=== PATIENT | female | born 1990 | race Caucasian/White ===

== ENCOUNTER 2024-05-10 12:36 | Emergency (ER) | payer OTHER, SELFPAY ==
[2024-05-10 12:45] VITALS: BP 140/106
--- NOTE | 2024-05-10 13:42 | ED.GENMED ---
History of Present Illness
General
Chief Complaint: Change in Mental Status
Source: patient and ambulance crew
Exam Limitations: altered mental status
Time Seen by Provider: 05/10/24 13:18
Nursing documentation reviewed up to this point in time: agreed with
History of Present Illness
History of Present Illness:
34-year-old female mental illness seizure disorder presents for evaluation of bizarre behavior family concerned she is not taking her meds apparently here patient appears to be responding internal stimuli, though she is redirectable, cooperative,
Past History
Past History
ED Past Medical History: Seizures and Psychiatric
Social History
Tobacco: Non-smoker
Alcohol: None
Drug: None
Living: with family
Employment: Not employed
Review of Systems
Review of Systems
Unable to obtain full review of systems at this time due to: other (Mentally ill)
Other source history: ambulance crew
All Other Systems: Not applicable
Constitutional: Reports fever
Phy Exam
Physical Exam
Physical Exam:
Physical Exam
General: 34 female, speech is slightly pressured and bizarre
Neck: No jaundice no photophobia
Heart: Regular
Lungs: no acute respiratory distress.
Neuro: alert and oriented. no focal neurological deficits
Skin: no rash
Psychiatric: Speech is pressured bizarre affect cooperative
Extremities: no edema.
Course
Orders/Labs/Results
Orders:
Orders
05/10/24 13:34
Acetaminophen Urgent
Alcohol Urgent
Complete Blood Count/With Diff Urgent
Comprehensive Metabolic Panel Urgent
Depakane Urgent
HCG, Serum Qualitative Screen Urgent
Salicylate Urgent
Urine Drug Abuse Screen Urgent
05/10/24 13:35
Crisis Consult Urgent
Reason for Consult: bizzaire behavior
Test Result ONCE
Vital Signs
Initial and Last Documented VS:
Initial Vital Signs
Temp Pulse Resp BP Pulse Ox
99 F 87 16 140/106 97
05/10/24 12:45 05/10/24 12:45 05/10/24 12:45 05/10/24 12:45 05/10/24 12:45
Last Documented Vital Signs
Temp Pulse Resp BP Pulse Ox
99 F 87 16 140/106 97
05/10/24 12:45 05/10/24 12:45 05/10/24 12:45 05/10/24 12:45 05/10/24 12:45
MDM/Problems Addressed
Differential Diagnosis Includes:
Acute psychosis acute imelda doubt infection doubt intoxication
MDM/Problems Addressed:
Behavioral disturbance
Chronic conditions affecting care: Neurological disorder and Psychiatric illness
Acute Exacerbation and/or Progression of Chronic Illness: Neurological disorder and Psychiatric illness
*Pulse Oximetry
Patient hypoxic: no
*Critical Care Note
Total Time (30-74mins, 75-104mins- exclusive of procedures): Not Applicable
ED Attending Note
-
Portions of this chart may have been created with voice recognition software.� Occasional wrong word or��sound alike� substitutions may have occurred due to the inherent limitations of voice recognition software.
Discharge Plan
Departure
Prescriptions:
No Action
Depakote
1 tab PO DAILY
Interventions
Interventions:
*Risk Screen - Suicide Last Done: 05/10/24 12:48
*Neglect/Abuse Screening Last Done: 05/10/24 12:48
*ED COVID-19 Vaccine History Last Done: 05/10/24 13:07
ED- Pulmonary Assessment Last Done: 05/10/24 13:11
ED-Psychological Assessment Last Done: 05/10/24 12:59
ED- Neurological Assessment Last Done: 05/10/24 12:49
ED-Suicide Risk Assessment Last Done: 05/10/24 13:11
Discharge Date and Time
Print Language: GERMAN
[2024-05-10 14:14] LABS: % Basophils 0.5 % (0-2); % Eosinophils 0.7 % (0-6); % Immature Granulocytes 0.7 % (0-0.5); % Monocytes 13.4 % (1.7-9.3); % Neutrophils 56.7 % (42.2-75.2); Absolute Lymphocytes 1.1 10^3/uL (1.2-3.4); Absolute Monocytes 0.5 10^3/uL (0.1-0.6); Absolute Neutrophils 2.3 10^3/uL (1.4-6.5); Hematocrit 38.5 % (37.0-47.0); Hemoglobin 12.7 g/dL (12.0-16.0); Mean Corpuscular Hgb 23.9 pg (27.0-31.0); Mean Corpuscular Volume 72.5 fL (81.0-99.0); Mean Platelet Volume 9.7 fL (7.4-10.4); Nucleated Red Blood Cells % 0 %; Platelet Count 255 10^3/uL (130-400); Red Blood Cell Count 5.31 10^6/uL (4.20-5.40); Red Cell Dist. Width 14.5 % (11.5-14.5)
[2024-05-10 14:37] LABS: HCG, Serum Qualitative Screen Negative
[2024-05-10 14:51] LABS: ALT (SGPT) 21 U/L (0-35); AST (SGOT) 27 U/L (14-36); Acetaminophen < 10 ug/ml (10-30); Alkaline Phosphatase 80 U/L (38-126); Blood Urea Nitrogen 9 mg/dl (7-17); Calcium 9.7 mg/dl (8.4-10.2); Carbon Dioxide 22 mmol/L (22-30); Chloride 103 mmol/L (98-107); Glucose 105 mg/dl (70-99); Potassium 3.6 mmol/L (3.5-5.1); Salicylate < 1.0 mg/dl (2.0-20.0); Sodium 138 mmol/L (135-145); Total Bilirubin 0.4 mg/dl (0.2-1.3); Total Protein 7.8 g/dl (6.3-8.2); eGFR > 60.00
--- NOTE | 2024-05-10 14:53 | ED.GENMED ---
History of Present Illness
General
Chief Complaint: Change in Mental Status
Time Seen by Provider: 05/10/24 13:18
Past History
Past History
ED Past Medical History: Seizures and Psychiatric
Social History
Tobacco: Non-smoker
Alcohol: None
Drug: None
Living: with family
Employment: Not employed
Course
Orders/Labs/Results
Orders:
Orders
05/10/24 13:34
Urine Drug Abuse Screen Urgent
05/10/24 13:35
Crisis Consult Urgent
Reason for Consult: bizzaire behavior
Test Result ONCE
05/10/24 13:57
Acetaminophen Urgent
Alcohol Urgent
Complete Blood Count/With Diff Urgent
Comprehensive Metabolic Panel Urgent
Depakane Urgent
HCG, Serum Qualitative Screen Urgent
Salicylate Urgent
05/10/24 14:55
Acetaminophen [Tylenol] 650 mg PO NOW STA
05/10/24 15:01
Olanzapine [Zyprexa] 5 mg PO NOW STA
05/10/24 15:27
Ibuprofen [Motrin] 600 mg PO NOW STA
Abnormal Lab Results
05/10/24
13:57
WBC 4.0 L 10^3/uL
(4.8-10.8)
MCV 72.5 L fL
(81.0-99.0)
MCH 23.9 L pg
(27.0-31.0)
Absolute Lymphs (auto) 1.1 L 10^3/uL
(1.2-3.4)
Immature Gran % 0.7 H %
(0-0.5)
Monocytes % 13.4 H %
(1.7-9.3)
Glucose 105 H mg/dl
(70-99)
Salicylates < 1.0 L mg/dl
(2.0-20.0)
Acetaminophen < 10 L ug/ml
(10-30)
Valproic Acid 49.0 L ug/ml
(50.0-120.0)
05/10/24 13:57
05/10/24 13:57
Vital Signs
Initial and Last Documented VS:
Initial Vital Signs
Temp Pulse Resp BP Pulse Ox
99 F 87 16 140/106 97
05/10/24 12:45 05/10/24 12:45 05/10/24 12:45 05/10/24 12:45 05/10/24 12:45
Last Documented Vital Signs
Temp Pulse Resp BP Pulse Ox
99 F 87 16 140/106 97
05/10/24 12:45 05/10/24 12:45 05/10/24 12:45 05/10/24 12:45 05/10/24 12:45
Update Note
Update Note:
Update, labs are noted patient with some intermittent outbursts, crying at times talking about her child crisis will be over to see the patient
Reviewed with crisis
302 completed by family
ED Attending Note
-
Portions of this chart may have been created with voice recognition software.� Occasional wrong word or��sound alike� substitutions may have occurred due to the inherent limitations of voice recognition software.
Discharge Plan
Departure
Prescriptions:
No Action
Depakote
1 tab PO DAILY
Referrals:
Esdras Chavarria MD [Family Provider] -
Interventions
Interventions:
*Risk Screen - Suicide Last Done: 05/10/24 12:48
*Neglect/Abuse Screening Last Done: 05/10/24 12:48
ED- Fall Risk Assessment Last Done: 05/10/24 14:13
*ED COVID-19 Vaccine History Last Done: 05/10/24 13:07
ED- Pulmonary Assessment Last Done: 05/10/24 13:11
ED-Psychological Assessment Last Done: 05/10/24 12:59
ED- Neurological Assessment Last Done: 05/10/24 12:49
ED-Suicide Risk Assessment Last Done: 05/10/24 13:11
Discharge Date and Time
Print Language: MALDIVIAN
[2024-05-10 15:00] LABS: Alcohol None Detected
[2024-05-10] MEDS: TYLENOL 650 MG PO (15:32)
[2024-05-10] MEDS: ZYPREXA 5 MG PO (15:32)
[2024-05-10] MEDS: MOTRIN 600 MG PO (15:32)
[2024-05-10] MEDS: ZYPREXA 10 MG IM (18:31)
[2024-05-10 18:52] LABS: Amphetamines Negative (Negative); Barbiturates Negative (Negative); Benzodiazepines Negative (Negative); Buprenorphine Negative (Negative); Cocaine Negative (Negative); Marijuana Negative (Negative); Methadone Negative (Negative); Methamphetamines Negative (Negative); Opiates Negative (Negative); Phencyclidine Negative (Negative); Tricyclic Antidepressants Negative (Negative)
[2024-05-10 22:20] VITALS: BP 155/98
== END 2024-05-10 22:42 ==
LOC: EMR 12:36
PROVIDERS: EMERGENCY PHYSICIAN Emergency Medicine; FAMILY PHYSICIAN Family Medicine
DX: R46.2 Strange and inexplicable behavior (principal); R56.9 Unspecified convulsions; I10 Essential (primary) hypertension
CPT/HCPCS: 99285; 96372; 80053; 80143; 80164; 80179; 80306; 82077; 84703; 85025; J2358

== ENCOUNTER 2024-08-22 17:45 | Emergency (ER) | payer OTHER, SELFPAY ==
[2024-08-22 17:45] VITALS: BP 125/79
[2024-08-22 18:10] LABS: % Basophils 0.4 % (0-2); % Eosinophils 0.8 % (0-6); % Immature Granulocytes 0.4 % (0-0.5); % Monocytes 7.3 % (1.7-9.3); % Neutrophils 69.1 % (42.2-75.2); Absolute Lymphocytes 1.2 10^3/uL (1.2-3.4); Absolute Monocytes 0.4 10^3/uL (0.1-0.6); Absolute Neutrophils 3.7 10^3/uL (1.4-6.5); Hematocrit 35.6 % (37.0-47.0); Hemoglobin 11.4 g/dL (12.0-16.0); Mean Corpuscular Hgb 23.9 pg (27.0-31.0); Mean Corpuscular Volume 74.8 fL (81.0-99.0); Mean Platelet Volume 10.2 fL (7.4-10.4); Nucleated Red Blood Cells % 0 %; Platelet Count 232 10^3/uL (130-400); Red Blood Cell Count 4.76 10^6/uL (4.20-5.40); White Blood Cell Count 5.3 10^3/uL (4.8-10.8)
[2024-08-22 18:25] LABS: ALT (SGPT) 14 U/L (0-35); AST (SGOT) 20 U/L (14-36); Albumin 4.6 g/dl (3.5-5.0); Alkaline Phosphatase 62 U/L (38-126); Blood Urea Nitrogen 14 mg/dl (7-17); Calcium 9.6 mg/dl (8.4-10.2); Carbon Dioxide 25 mmol/L (22-30); Chloride 106 mmol/L (98-107); Glucose 108 mg/dl (70-99); Potassium 4.2 mmol/L (3.5-5.1); Sodium 139 mmol/L (135-145); Total Bilirubin 0.5 mg/dl (0.2-1.3); Total Protein 7.1 g/dl (6.3-8.2); eGFR > 60.00
== END 2024-08-22 21:55 | disposition left against medical advice (07) ==
LOC: EMR 17:45
PROVIDERS: Emergency Medicine
DX: R41.89 Other symptoms and signs involving cognitive functions and awareness (principal); Z53.21 Procedure and treatment not carried out due to patient leaving prior to being seen by health care provider
CPT/HCPCS: 99281; 80053; 85025